=== PATIENT | male | born 1970 | race Caucasian/White ===

== ENCOUNTER 2017-04-11 17:27 | Emergency (ER) | payer OTHER ==
[~2017-04-11] VITALS: Ht 175.3 cm; Wt 103.3 kg
[~2017-04-11 17:27] MED LIST: CHOLESTEROL MED
[2017-04-11 17:30] VITALS: TEMP 37; Ht 175.3 cm; Wt 103.3 kg
[2017-04-11] MEDS ORDERED: METOCLOPRAMIDE HCL INJ 5 MG/ML 2 ML VIAL IM STA (17:46)
[2017-04-11] MEDS ORDERED: MAGNESIUM CITRATE 296 ML/BTL PO STA (17:46)
[2017-04-11] MEDS ORDERED: SOAP SUDS ENEMA PR STA (17:46)
--- NOTE | 2017-04-11 18:13 | EMERGENCY ROOM VISIT NOTE ---
History Report prepared by Juvenal: Gordon Kruse Under the Supervision of: Dr. John Cartwright M.D. First contact with patient: 17:37 Chief Complaint: CONSTIPATION Stated Complaint: CONSTIPATED FOR 14 DAYS Nursing Triage Summary: pt reports constipated X 14 days will have very small BM has tried laxatives , stool softners and suppositories with no relief History of Present Illness The patient is a 46 year old white male with a past medical history of hyperlipidemia who presents to the ED with a cc of constipation beginning two weeks ago. Positive nausea and abdominal soreness. Negative fevers, back pain, vomiting, unexplained weight loss, or leg swelling/pain. Over this time, the patient has only been able to have extremely small bowel movements. He has tried stool softeners, enemas, oil, and multiple laxatives with no relief. He denies any family history. The only medication she takes is a Statin. Source of History: patient Onset: 2 weeks ago Position: other (GI) Symptom Intensity: moderate Quality: other (Constipation) Timing: constant Associated Symptoms: + nausea, + abdominal pain, No fevers, No vomiting, No back pain Review of Systems See HPI for pertinent positives and negatives. A total of ten systems were reviewed and were otherwise negative. Past Medical & Surgical Medical Problems: (1) Hyperlipidemia Family History Patient reports no known family medical history. Social History Smoking Status: Never Smoker Smokeless Tobacco Use: Yes Drug Use: none Occupation Status: employed Current/Historical Medications Miscellaneous Medications [Cholesterol Med] Allergies Coded Allergies: NO KNOWN DRUG ALLERGIES (Verified Allergy, Unknown, ., 04/11/17) Physical Exam Vital Signs Date Time Temp Pulse Resp B/P (MAP) Pulse Ox O2 Delivery O2 Flow Rate FiO2 04/11/17 19:20 108 16 132/78 97 Room Air 04/11/17 17:30 37.0 106 20 150/91 100 Room Air Physical Exam GENERAL: Awake, alert, well-appearing, NAD HENT: Normocephalic, atraumatic. EYES: Normal conjunctiva. Sclera non-icteric. NECK: Supple. No nuchal rigidity. FROM. RESPIRATORY: CTAB, no rhonchi, wheezing, crackles CARDIAC: RRR, no MRG ABDOMEN: Soft, non-surgical, lower abdominal discomfort, BS+ MSK: No chest wall TTP, no LE edema NEURO: GCS 15, CN 2-12 intact, moves all 4s on command SKIN: No rash or jaundice noted. Medical Decision & Procedures ER Provider Diagnostic Interpretation: Radiology results as stated below per my review and radiologist interpretation: ABDOMEN 2VIEW W/PA CHEST RTN CLINICAL HISTORY: constipation COMPARISON STUDY: No previous studies for comparison. FINDINGS: Erect chest reveals no free air. There is no focal pulmonary consolidation. There are no pleural effusions.] Supine views the abdomen reveal no abnormally dilated loops of large or small bowel. There are no transition zones indicate bowel obstruction. There is no evidence for excessive retained stool. IMPRESSION: No active disease in the chest. Normal bowel gas pattern Electronically signed by: Brandon Gregory M.D. 04/11/2017 6:23 PM Dictated Date/Time: 04/11/2017 6:22 PM Laboratory Results Date/Time Source Procedure Growth Status 04/11/17 19:05 Stool C.difficile Toxin B Gene (PCR) - Final No C. difficile toxin B gene detected Complete Medications Administered Medications (Trade) Dose Ordered Sig/Rachel Route Start Time Stop Time Status Last Admin Dose Admin Metoclopramide HCl (Reglan Inj) 10 mg NOW STAT IM 04/11/17 17:46 04/11/17 17:50 DC 04/11/17 17:46 10 MG Miscellaneous (Soap Suds Enema) [address] 04/11/17 17:46 04/11/17 17:50 DC 04/11/17 17:46 1 EA Magnesium Citrate (Citrate Of Magnesia Soln) 296 ml ONE STAT PO 04/11/17 17:46 04/11/17 17:50 DC 04/11/17 18:24 296 ML ED Course 1737: The patient was evaluated in room A3. A complete history and physical exam was performed. 193: I reevaluated the patient. He was able to have a bowel movement. Discussed results and discharge instructions: He verbalized understanding and agreement. The patient is ready for discharge. Medical Decision The patient is a 46 year old white male with a past medical history of hyperlipidemia who presents to the ED with a cc of constipation beginning two weeks ago. Positive nausea and abdominal soreness. Negative fevers, back pain, vomiting, unexplained weight loss, or leg swelling/pain. Differential diagnoses include constipation, obstruction, decreased transit time , and medication side effect. Patient was seen and evaluated the bedside. Patient states he's had some constipation over the last 2 weeks. Patient denies any family history of colon cancer unexplained weight loss. Patient denies any blood in the stool. Patient 's abdomen has some mild lower abdominal discomfort but does not have a surgical abdomen. Patient is afebrile. Patient did have a 2 view abdomen w/ CXR which did not show any acute abnormalities. Patient was also given medications and treatment. Patient was able have a bowel movement but was states is green. This was sent off for C. difficile. Patient was told to continue his regimen of stool softeners and to continue to use them until he has regular bowel movements. Patient was borderline tachycardic however this may be mildly related to dehydration. Patient was told to make sure he has ample fluids at home. I do not believe that the patient requires any more advanced imaging or blood work at this time given his soft abdomen, neg plain films, and recent bowel movement w/ symptomatic improvement. Patient was told to follow-up with his primary care physician for further evaluation, treatment, and possible specialist referral. Patient and family at the bedside were agreeable to this plan of care. Patient was given strict follow-up, discharge, and return precautions. All questions were answered. Patient was deemed suitable for outpatient follow-up at this time. Patient agreed with the plan of care and was safely discharged home. Medication Reconcilliation Current Medication List: was personally reviewed by me Blood Pressure Screening Patient's blood pressure: Normal blood pressure Blood pressure disposition: Did not require urgent referral Impression Primary Impression: Constipation Scribe Attestation The scribe's documentation has been prepared under my direction and personally reviewed by me in its entirety. I confirm that the note above accurately reflects all work, treatment, procedures, and medical decision making performed by me. Departure Information Dispostion Home / Self-Care Referrals Flako Rodriguez D.O. (PCP) Forms HOME CARE DOCUMENTATION FORM, IMPORTANT VISIT INFORMATION Patient Instructions Constipation, Diet High Fiber Ri, [facility] Additional Instructions Please return to the emergency department if you have worsening or recurrent symptoms not amenable to at-home treatment. Please call for a follow-up appointment with her primary care physician. Please take your medications as prescribed. If you have other concerns and/or complaints please feel free to also call your primary care physician's office or return the ED for further evaluation, management, and treatment. You may take 600 mg Ibuprofen every 6 hours as needed for pain with food for no more than 2 consecutive days. You may take tylenol 1000 mg every 6 hours as needed for pain. You may take motrin and tylenol separately or at the same time. Take your medications as prescribed. You have been examined and treated today on an emergency basis only. This is not a substitute for, or an effort to provide, complete comprehensive medical care. It is impossible to recognize and treat all injuries or illnesses in a single emergency department visit. It is therefore important that you follow up closely with [facility], your PCP, and/or your specialist(s). Call as soon as possible for an appointment. Thank you for your time and consideration. I look forward to speaking with you again soon. Please don't hesitate to call us if you have any questions. Problem Qualifiers Primary Impression: Constipation Constipation type: unspecified constipation type Qualified Codes: K59.00 - Constipation, unspecified
--- NOTE | 2017-04-11 18:24 | DIAGNOSTIC IMAGING REPORT ---
ABDOMEN 2VIEW W/PA CHEST RTN CLINICAL HISTORY: constipation COMPARISON STUDY: No previous studies for comparison. FINDINGS: Erect chest reveals no free air. There is no focal pulmonary consolidation. There are no pleural effusions.] Supine views the abdomen reveal no abnormally dilated loops of large or small bowel. There are no transition zones indicate bowel obstruction. There is no evidence for excessive retained stool. IMPRESSION: No active disease in the chest. Normal bowel gas pattern Electronically signed by: Brandon Gregory M.D. 04/11/2017 6:23 PM Dictated Date/Time: 04/11/2017 6:22 PM
[2017-04-11 19:20] VITALS: BP 132/78; PULSE 108; O2SAT 97
== END 2017-04-11 19:43 | disposition home or self-care (01) ==
LOC: C.EDB 17:28 → C.EDA 19:43
DX: K59.00 Constipation, unspecified (principal); E78.5 Hyperlipidemia, unspecified; Z79.899 Other long term (current) drug therapy